=== PATIENT | male | born 1980 ===

== ENCOUNTER 2018-03-29 12:41 | Emergency (ER) | payer MEDICAID ==
--- NOTE | 2018-03-29 13:16 | ED PDOC ---
HPI: Psych/Substance Abuse <Maxwell Pickens - Last Filed: 03/30/18 06:36> Chief Complaint (Provider): Psychiatric Evaluation ED Caveat: Other (clinical condition) History Per: EMS, Family History/Exam Limitations: clinical condition Current Symptoms Are (Timing): Still Present Additional History Per: Patient Additional Complaint(s): 37 year old male with history of schizophrenia and bipolar disorder presents to the ED via [facility] for a psychiatric evaluation. As per EMS, family called them due to patient's increasing agitation, aggression, and paranoia at home. Patient says that he is here due to an issue about his and phone, but will not elaborate further. Patient is repeatedly saying, "They all want my phone." Admits to auditory hallucinations, but denies suicidal / homicidal ideation, and visual hallucinations. Some history is limited secondary to patient's clinical condition. PMD: Silver <Alesia Blandon - Last Filed: 03/30/18 13:20> Time Seen by Provider: 03/29/18 12:48 Chief Complaint (Nursing): Psychiatric Evaluation Past Medical History Vital Signs: Last Vital Signs Temp 98 F 03/30/18 06:30 Pulse 82 03/30/18 06:30 Resp 16 03/30/18 06:30 BP 121/70 03/30/18 06:30 Pulse Ox 96 03/30/18 06:30 <Maxwell Pickens - Last Filed: 03/30/18 06:36> Reviewed: Historical Data, Nursing Documentation, Vital Signs - Medical History PMH: Asthma, Bipolar Disorder, Diabetes (type 2), HTN, Schizophrenia - Surgical History Surgical History: Back Surgery - Family History Family History: States: Unknown Family Hx - Living Arrangements Living Arrangements: With Family - Social History Alcohol: None Drugs: Denies <Alesia Blandon - Last Filed: 03/30/18 13:20> - Home Medications Home Medications: Ambulatory Orders Medication Instructions Recorded Albuterol HFA [Ventolin HFA 90 2 inh INH PRN PRN 03/29/18 mcg/actuation (8 g)] DULoxetine [Cymbalta] 60 mg PO DAILY 03/29/18 Doxepin [Doxepin HCl] 25 mg PO BID 03/29/18 Gabapentin [Neurontin] 300 mg PO DAILY 03/29/18 Insulin Glargine, Recombina 20 units SC HS 03/29/18 [Lantus] Insulin Human Isophane (NPH) 15 unit SC TID 03/29/18 [Novolin N] RX: Losartan [Cozaar] 50 mg PO DAILY 03/29/18 RX: MetFORMIN [glucoPHAGE] 1,000 mg PO BID 03/29/18 RX: Omeprazole 40 mg PO DAILY 03/29/18 RX: Pravastatin Sodium [Pravachol] 20 mg PO DAILY 03/29/18 RX: Temazepam 30 mg PO HS 03/29/18 RX: Tramadol HCl [Ultram] 1 tab PO QID PRN 03/29/18 RX: traZODone [Desyrel] 100 mg PO HS 03/29/18 Zolpidem [Ambien] 10 mg PO HS 03/29/18 oxyCODONE/Acetaminophen [Percocet 1 tab PO Q6H PRN 03/29/18 5/325 mg Tab] - Allergies Allergies/Adverse Reactions: Allergies Allergy/AdvReac Type Severity Reaction Status Date / Time No Known Allergies Allergy Verified 03/29/18 12:44 Review of Systems Review Of Systems: ROS cannot be obtained secondary to pt's inabilty to answer questions. <Alesia Blandon - Last Filed: 03/30/18 13:20> Physical Exam - Reviewed Nursing Documentation Reviewed: Yes Vital Signs Reviewed: Yes - Physical Exam Comments: GENERAL APPEARANCE: Patient is awake, alert, hyperactive, in no acute distress. SKIN: Warm, dry; (-) cyanosis ENMT: Mucous membranes moist. Airway patent: (-) stridor. NECK: Supple, FROM HEART AND CARDIOVASCULAR: (-) irregularity CHEST AND RESPIRATORY: (-) rales, (-) rhonchi, (-) wheezes; breath sounds equal. Respirations even and nonlabored. ABDOMEN: Soft, (-) distention, (-) tenderness, (-) guarding. NEURO AND PSYCH: Mental status as above. [place] thoughts and (+) paranoia. (-) facial asymmetry. <Alesia Blandon - Last Filed: 03/30/18 13:20> - Laboratory Results Result Diagrams: 03/29/18 13:58 03/29/18 13:58 <Maxwell Pickens - Last Filed: 03/30/18 06:36> - Laboratory Results Result Diagrams: 03/29/18 13:58 03/29/18 13:58 <Alesia Blandon - Last Filed: 03/30/18 13:20> Medical Decision Making Medical Decision Makin Patient transferred to Dr. Cowart, pending [facility] bed availability. Scribe Attestation: Documented by Jeannie Copeland, acting as a scribe for Maxwell Pickens MD. Provider Scribe Attestation: All medical record entries made by the Scribe were at my direction and personally dictated by me. I have reviewed the chart and agree that the record accurately reflects my personal performance of the history, physical exam, medical decision making, and the department course for this patient. I have also personally directed, reviewed, and agree with the discharge instructions and dis position. <Maxwell Pickens - Last Filed: 03/30/18 06:36> Medical Decision Making: Initial Impression: psychiatric evaluation Time: 1250 Initial Plan: --Upon arrival to ED, patient was extremely agitated and uncooperative, security called to bedside and patient given 2mg Ativan IM. Patient placed on 1:1 observation. --Crisis evaluation 1325 Per crisis evaluation, patient to be screened by [facility]. CBC, CMP, serum alcohol, UDS, U/A, chest XR, EKG ordered for medical clearance. 1410 EKG: NSR @ 91bpm (-) ST elevation, (+) prolonged QT, QTc 494 1500 CXR reviewed, radiology report follows Date of service: 03/29/2018 HISTORY: psych clearance COMPARISON: No prior study available comparison FINDINGS: LUNGS: Poor inspiration with low lung volumes, crowded bronchovascular markings and mild bibasilar atelectasis. PLEURA: No significant pleural effusion identified, no pneumothorax apparent. CARDIOVASCULAR: No aortic atherosclerotic calcification present. Normal cardiac size. No pulmonary vascular congestion. OSSEOUS STRUCTURES: No significant abnormalities. VISUALIZED UPPER ABDOMEN: Normal. OTHER FINDINGS: None. IMPRESSION: Poor inspiration with low lung volumes, crowded bronchovascular markings and mild bibasilar atelectasis. U/A with no evidence of UTI Serum alcohol <10 CBC unremarkable. CMP with slight elevations of LFTs 1535 Patient sleeping comfortably in no distress. Utox: (+) cocaine Patient is medically stable for psychiatric evaluation/[facility] screening. 1929 [facility] screener at bedside. 2044 Patient resting comfortably; no distress noted. Per [facility] evaluation, patient to be transferred to [facility] pending bed placement. 2214 Patient refusing to stay in ED bed and pacing in exam room, confrontational and threatening to tech sitting on 1:1. Patient treated with Haldol IM and Ativan IM for increasing agitation. Patient placed on rn cardiac cath. 2234 Repeat EKG: NSR @ 79bpm (-) ST elevation, QTc 481 (+) prolonged QT No additional Haldol to be given to patient in light of prolonged QT. 2340 Patient sleeping comfortably. Vitals stable on rn cardiac cath. [address] Pickens, ED MD pending [facility] bed placement and transfer. Scribe Attestation: Documented by Sara Ventura, acting as a scribe for Alesia Blandon PA-C. Provider Scribe Attestation: All medical record entries made by the Scribe were at my direction and personally dictated by me. I have reviewed the chart and agree that the record accurately reflects my personal performance of the history, physical exam, medical decision making, and the department course for this patient. I have also personally directed, reviewed, and agree with the discharge instructions and disposition. <Alesia Blandon - Last Filed: 03/30/18 13:20> Disposition <Maxwell Pickens - Last Filed: 03/30/18 06:36> - Patient ED Disposition Is Patient to be Admitted: Transfer of Care (Case endorsed to Dr Pickens, ED MD pending [facility] bed placement and transfer.) Counseled Patient/Family Regarding: Studies Performed, Diagnosis - Disposition Disposition: Transfer of Care (Case endorsed to Dr Pickens ED MD pending [facility] bed placement and transfer.) Disposition Time: 00:00 - POA Present On Arrival: None <Alesia Blandon - Last Filed: 03/30/18 13:20> - Clinical Impression Clinical Impression: Paranoid schizophrenia - Disposition Referrals: Non [facility] Provider, [Primary Care Provider] - Condition: FAIR Results - Diagnostic Imaging Results Radiology Results Chest X-Ray 03/29/18 13:29 IMPRESSION: Poor inspiration with low lung volumes, crowded bronchovascular markings and mild bibasilar atelectasis. - Lab Results Lab Results: 03/29/18 03/29/18 03/29/18 13:58 13:58 13:58 WBC 4.2 L RBC 4.98 Hgb 14.5 Hct 44.8 MCV 89.8 MCH 29.1 MCHC 32.4 L RDW 13.7 Plt Count 159 MPV 8.7 Neut % (Auto) 54.0 Lymph % (Auto) 27.8 [place] % (Auto) 14.1 H Eos % (Auto) 3.5 Baso % (Auto) 0.6 Neut # (Auto) 2.3 Lymph # (Auto) 1.2 [place] # (Auto) 0.6 Eos # (Auto) 0.1 Baso # (Auto) 0.0 Sodium Potassium Chloride Carbon Dioxide Anion Gap BUN Creatinine Est GFR ( Amer) Est GFR (Non-Af Amer) Random Glucose Calcium Total Bilirubin AST ALT Alkaline Phosphatase Total Protein Albumin Globulin Albumin/Globulin Ratio Urine Color Yellow Urine Clarity Slighty-cloudy Urine pH 6.0 Ur Specific [place] 1.014 Urine Protein Negative Urine Glucose (UA) Neg Urine Ketones Trace Urine Blood Negative Urine Nitrate Negative Urine Bilirubin Negative Urine Urobilinogen 0.2-1.0 Ur Leukocyte Esterase Neg Urine RBC (Auto) 1 Urine Microscopic WBC 1 Ur Squamous Epith Cells < 1 Urine Bacteria Rare Urine Opiates Screen Negative Urine Methadone Screen Negative Ur Barbiturates Screen Negative Ur Phencyclidine Scrn Negative Ur Amphetamines Screen Negative U Benzodiazepines Scrn Negative U Oth Cocaine Metabols Positive H U Cannabinoids Screen Negative Alcohol, Quantitative 03/29/18 13:58 WBC RBC Hgb Hct MCV MCH MCHC RDW Plt Count MPV Neut % (Auto) Lymph % (Auto) [place] % (Auto) Eos % (Auto) Baso % (Auto) Neut # (Auto) Lymph # (Auto) [place] # (Auto) Eos # (Auto) Baso # (Auto) Sodium 141 Potassium 3.9 Chloride 107 Carbon Dioxide 22 Anion Gap 16 BUN 20 Creatinine 1.1 Est GFR ( Amer) > 60 Est GFR (Non-Af Amer) > 60 Random Glucose 147 H Calcium 9.4 Total Bilirubin 3.2 H AST 98 H ALT 93 H Alkaline Phosphatase 71 Total Protein 7.6 Albumin 4.4 Globulin 3.2 Albumin/Globulin Ratio 1.4 Urine Color Urine Clarity Urine pH Ur Specific [place] Urine Protein Urine Glucose (UA) Urine Ketones Urine Blood Urine Nitrate Urine Bilirubin Urine Urobilinogen Ur Leukocyte Esterase Urine RBC (Auto) Urine Microscopic WBC Ur Squamous Epith Cells Urine Bacteria Urine Opiates Screen Urine Methadone Screen Ur Barbiturates Screen Ur Phencyclidine Scrn Ur Amphetamines Screen U Benzodiazepines Scrn U Oth Cocaine Metabols U Cannabinoids Screen Alcohol, Quantitative < 10 <Maxwell Pickens - Last Filed: 03/30/18 06:36> - Diagnostic Imaging Results Radiology Results Chest X-Ray 03/29/18 13:29 IMPRESSION: Poor inspiration with low lung volumes, crowded bronchovascular markings and mild bibasilar atelectasis. - Lab Results Lab Results: 03/29/18 03/29/18 03/29/18 13:58 13:58 13:58 WBC 4.2 L RBC 4.98 Hgb 14.5 Hct 44.8 MCV 89.8 MCH 29.1 MCHC 32.4 L RDW 13.7 Plt Count 159 MPV 8.7 Neut % (Auto) 54.0 Lymph % (Auto) 27.8 [place] % (Auto) 14.1 H Eos % (Auto) 3.5 Baso % (Auto) 0.6 Neut # (Auto) 2.3 Lymph # (Auto) 1.2 [place] # (Auto) 0.6 Eos # (Auto) 0.1 Baso # (Auto) 0.0 Sodium Potassium Chloride Carbon Dioxide Anion Gap BUN Creatinine Est GFR ( Amer) Est GFR (Non-Af Amer) Random Glucose Calcium Total Bilirubin AST ALT Alkaline Phosphatase Total Protein Albumin Globulin Albumin/Globulin Ratio Urine Color Yellow Urine Clarity Slighty-cloudy Urine pH 6.0 Ur Specific [place] 1.014 Urine Protein Negative Urine Glucose (UA) Neg Urine Ketones Trace Urine Blood Negative Urine Nitrate Negative Urine Bilirubin Negative Urine Urobilinogen 0.2-1.0 Ur Leukocyte Esterase Neg Urine RBC (Auto) 1 Urine Microscopic WBC 1 Ur Squamous Epith Cells < 1 Urine Bacteria Rare Urine Opiates Screen Negative Urine Methadone Screen Negative Ur Barbiturates Screen Negative Ur Phencyclidine Scrn Negative Ur Amphetamines Screen Negative U Benzodiazepines Scrn Negative U Oth Cocaine Metabols Positive H U Cannabinoids Screen Negative Alcohol, Quantitative 03/29/18 13:58 WBC RBC Hgb Hct MCV MCH MCHC RDW Plt Count MPV Neut % (Auto) Lymph % (Auto) [place] % (Auto) Eos % (Auto) Baso % (Auto) Neut # (Auto) Lymph # (Auto) [place] # (Auto) Eos # (Auto) Baso # (Auto) Sodium 141 Potassium 3.9 Chloride 107 Carbon Dioxide 22 Anion Gap 16 BUN 20 Creatinine 1.1 Est GFR ( Amer) > 60 Est GFR (Non-Af Amer) > 60 Random Glucose 147 H Calcium 9.4 Total Bilirubin 3.2 H AST 98 H ALT 93 H Alkaline Phosphatase 71 Total Protein 7.6 Albumin 4.4 Globulin 3.2 Albumin/Globulin Ratio 1.4 Urine Color Urine Clarity Urine pH Ur Specific [place] Urine Protein Urine Glucose (UA) Urine Ketones Urine Blood Urine Nitrate Urine Bilirubin Urine Urobilinogen Ur Leukocyte Esterase Urine RBC (Auto) Urine Microscopic WBC Ur Squamous Epith Cells Urine Bacteria Urine Opiates Screen Urine Methadone Screen Ur Barbiturates Screen Ur Phencyclidine Scrn Ur Amphetamines Screen U Benzodiazepines Scrn U Oth Cocaine Metabols U Cannabinoids Screen Alcohol, Quantitative < 10 <Alesia Blandon - Last Filed: 03/30/18 13:20>
--- NOTE | 2018-03-29 13:53 | RAD ---
Date of service: 03/29/2018 HISTORY: psych clearance COMPARISON: No prior study available comparison FINDINGS: LUNGS: Poor inspiration with low lung volumes, crowded bronchovascular markings and mild bibasilar atelectasis. PLEURA: No significant pleural effusion identified, no pneumothorax apparent. CARDIOVASCULAR: No aortic atherosclerotic calcification present. Normal cardiac size. No pulmonary vascular congestion. OSSEOUS STRUCTURES: No significant abnormalities. VISUALIZED UPPER ABDOMEN: Normal. OTHER FINDINGS: None. IMPRESSION: Poor inspiration with low lung volumes, crowded bronchovascular markings and mild bibasilar atelectasis.
[2018-03-29 14:21] LABS: BASO % 0.6 % (0.0-2.0); EOS # 0.1 K/uL (0.0-0.7); EOS % 3.5 % (0.0-4.0); HEMOGLOBIN 14.5 g/dL (12.0-18.0); LYMPH # 1.2 K/uL (1.0-4.3); LYMPH % 27.8 % (20.0-40.0); MEAN CELL VOLUME 89.8 fl (80.0-94.0); MEAN CORPUSCULAR HEMOGLOBIN 29.1 pg (27.0-31.0); MEAN CORPUSCULAR HGB CONC 32.4 g/dL (33.0-37.0); MEAN PLATELET VOLUME 8.7 fl (7.2-11.7); MONO # 0.6 K/uL (0.0-0.8); MONO % 14.1 % (0.0-10.0); NEUT # 2.3 K/uL (1.8-7.0); NRBC % 0.2 % (0.0-0.0); RBC 4.98 Mil/uL (4.40-5.90); RED CELL DISTRIBUTION WIDTH 13.7 % (11.5-14.5); WHITE BLOOD COUNT 4.2 K/uL (4.8-10.8)
[2018-03-29 14:46] LABS: SQUAMOUS EPITHIAL < 1 /hpf (0-5); URINE BACTERIA RARE (<OCC); URINE BILIRUBIN NEGATIVE (NEGATIVE); URINE BLOOD NEGATIVE (NEGATIVE); URINE CLARITY SLIGHTY-CLOUDY (Clear); URINE COLOR YELLOW (YELLOW); URINE GLUCOSE (UA) NEG (NEGATIVE); URINE LEUKOCYTE ESTERASE NEG Leu/uL (Negative); URINE PROTEIN NEGATIVE (NEGATIVE); URINE UROBILINOGEN 0.2-1.0 mg/dL (0.2-1.0)
[2018-03-29 14:47] LABS: ALB/GLOB RATIO 1.4 (1.0-2.1); ALBUMIN 4.4 g/dL (3.5-5.0); ALT/SGPT 93 U/L (21-72); AST/SGOT 98 U/L (17-59); BLOOD UREA NITROGEN 20 mg/dl (9-20); CALCIUM 9.4 mg/dL (8.4-10.2); GFR NON-AFRICAN AMERICAN > 60
[2018-03-29 15:12] LABS: BARBITURATES, UR NEGATIVE (NEGATIVE); BENZODIAZEPINES, UR NEGATIVE (NEGATIVE); OPIATES, UR NEGATIVE (NEGATIVE); PHENCYCLIDINE, UR NEGATIVE (NEGATIVE)
--- NOTE | 2018-03-29 21:35 | CARD ---
APPROVED REPORT Date of service: 03/29/2018 EKG Measurement Heart [id number] <Conclusion> Normal sinus rhythm Prolonged QT Abnormal ECG
--- NOTE | 2018-03-30 07:15 | ED PDOC ---
- Laboratory Results Result Diagrams: 03/29/18 13:58 03/29/18 13:58 - ECG O2 Sat by Pulse Oximetry: 96 (RA) Pulse Ox Interpretation: Normal Medical Decision Making Medical Decision Making: Time:07:00 --Patient transferred to this provider pending [facility] bed availability. Scribe Attestation: Documented by Najma River acting as a scribe for Woo Cowart MD Provider Scribe Attestation: All medical record entries made by the Scribe were at my direction and personally dictated by me. I have reviewed the chart and agree that the record accurately reflects my personal performance of the history, physical exam, medical decision making, and the department course for this patient. I have also personally directed, reviewed, and agree with the discharge instructions and disposition. Disposition - Clinical Impression Clinical Impression: Paranoid schizophrenia - POA Present On Arrival: None - Disposition Referrals: Non [facility] Provider, [Primary Care Provider] - Disposition: Other Institution ([facility]) Disposition Time: 07:00 Condition: STABLE
[2018-03-30 08:01] VITALS: RESP 19
[2018-03-30] MEDS ORDERED: Oxycodone/Acetaminophen 5/325 mg Tab PO STA (10:56)
[2018-03-30 12:42] VITALS: BP 130/78; PULSE 78; TEMP 97.6
[2018-03-30 13:57] VITALS: O2SAT 96
--- NOTE | 2018-03-30 21:08 | CARD ---
APPROVED REPORT Date of service: 03/29/2018 EKG Measurement Heart [id number] <Conclusion> Normal sinus rhythm Normal Electrocardiogram
== END 2018-03-30 12:43 | disposition short-term general hospital (02) ==
LOC: H.ER 12:41 → SUPCPDRO 12:41 → H.ER 03-30 12:43
DX: F20.0 Paranoid schizophrenia (principal); E11.9 Type 2 diabetes mellitus without complications; Z79.4 Long term (current) use of insulin; F31.9 Bipolar disorder, unspecified; I10 Essential (primary) hypertension
CPT/HCPCS: 71045; 80053; 80320; 80324; 80345; 80346; 80349; 80353; 80358; 80361; 81003; 82948; 83992; 85025; 93005; 96372; 99285; J1630; J2060